=== PATIENT | male | born 1980 | race Caucasian/White ===

== ENCOUNTER → 2018-11-12 11:25 | Outpatient (CLI) | payer BC, SELFPAY ==
[2018-11-12 09:17] VITALS: BMI 32.8
--- NOTE | 2018-11-12 09:30 | VAS_PTH ---
PATIENT: FELISHA SOLIMAN LOC: [facility] U#:[id number] AGE/SX: 45/M ROOM: RE11/12/[address]: Dr. Mitul Castro MD : 1980 BED: DIS: SPEC #: [id number] RECD: 11/12/18 11:19 STATUS: SHASHANK MADIHA #: [id number] LUCI: 11/12/18 09:[address]: Mitul Castro DEPT: SURGICAL PATHOLOGY RECD BY: Tone Hall Tissues: A - Vas deferens, NOS B - Vas deferens, NOS Procedures: Surgery Specimen Level II HEADER OPERATION: Bilateral partial vasectomy PRE-OP DIAGNOSIS: Sterilization TISSUE SUBMITTED: A - Right vas deferens, B - Left vas deferens MICROSCOPIC DIAGNOSIS A. Right vas deferens, segmental vasectomy: Complete cross section of the vas deferens with no pathologic change. B. left vas deferens, segmental vasectomy: Complete cross section of the vas deferens with no pathologic change. AM:deidre 11/15/18 MICROSCOPIC DESCRIPTION Slides are reviewed. GROSS DESCRIPTION A - Received is one container designated right vas deferens. The specimen consists of a cylindrical segment of pink-ford soft tissue. The fragment measures 2 cm in length and 0.2 cm in maximum diameter. Serial sections do not reveal gross lesions. The specimen is serially sectioned and totally submitted in one cassette. B - Received is one container designated left vas deferens. The specimen consists of a cylindrical segment of pink-ford soft tissue. The fragment measures 1.5 cm in length and 0.2 cm in maximum diameter. Serial sections do not reveal gross lesions. The specimen is serially sectioned and totally submitted in one cassette. / AM:deidre 11/13/18 TC: 4 CPT: 84486 x2
--- OUTSIDE RECORDS SUMMARY | 2019-01-16 23:18 | XMS RPT_ITS ---
:1980 Author Organization OH[facility] Care Team Providers Name Role Phone Mitul Castro Attending Unavailable Cebul, Mitul Referring Unavailable Cebul, Mitul Attending Unavailable Cebul, Mitul Attending Unavailable Cebul, Mitul Referring Unavailable Cebul, Mitul Attending Unavailable PROBLEMS PROBLEMS DATE TYPE CONDITION / CODE ATTENDING STATUS SOURCE 11/12/2018 Unknown Z30.2 - Encounter Mitul Castro Active [employer] for sterilization / Community Z30.2(ICD-10) Hospital Repository PROCEDURES PROCEDURES No Procedure Records FoundRESULTS RESULTS SURGERY VISIT REPORT Observed: 11/12/2018 Status: F Source: [place] 10:05 AM [facility] REPOSITORY [facility] [address] [place] [address] [address] [place] [address] OFFICE VISIT Date of Service: 11/12/18 MR#: [id number] Acct: [id number] Name: FELISHA SOLIMAN Rep #: [id number] : 1980 Provider: Mitul Castro MD Age/Sex: 38/M Location: [facility] Status: Signed Intake Vital Signs11/12/18 Body Mass Index (BMI) 32.8 Intake Visit Reasons: vasectomy Chief Complaint: vasectomy Stacker Tender Required: No Is patient in pain?: No Allergies Penicillins Allergy (Mild, Verified 11/12/18 09:08) rash Medications acetaminophen 300 mg-codeine 30 mg tablet 1 tab PO Q6H PRN #10 tab 11/11/18 [Rx Confirmed 11/11/18] [facility] Medical History Encounter for sterilization (Acute) Surgical History History of vasectomy (Acute 10/2018) S/P cholecystectomy (Acute) Family History Mother Diabetes Father Diabetes Heart disease Social History Smoking Status: Never smoker alcohol intake: current alcohol intake frequency: 0-2 drinks per day substance use type: does not use HPI HPI HPI: FELISHA SOLIMAN, is a 38 M who presents to the office today for surgical bilateral partial vasectomy Office Procedures Procedure Time Out Time Out Informed consent given: Yes Consent signed: Yes Time out checklist: patient, procedure, site marked/identified, positioning of patient, supplies available, allergies confirmed, team agrees on procedure Time out staff in room: Yes Time out verified: Yes Time out date: 11/12/18 Time out time: Vasectomy Provider Documentation Provider Documentation: Bilateral partial vasectomy Time out and informed consent was obtained. The patient was taken to the procedure room and placed supine on the table. Bilateral scrotal areas were clipper and Betadine prepped. 1% lidocaine mixed 50-50 with 0.5% Marcaine was utilized as a local anesthetic. Less than a total of 10 cc was utilized. Bilateral scrotal incisions were created. Sharp and blunt dissection was used to identify the vas deferens. A segment was cleared, the ends were crushed, and segments were excised. The ends were secured with 3-0 chromic inverted and resecured. The skin edges were approximated with simple sutures of 3-0 chromic. Topical antibiotic ointment and gauze applied. He was given activity and wound care instructions. The specimens are submitted in formalin for analysis. He is scheduled to return to my office in 1 week's time. He has been provided analgesics as prescribed. He is well aware that he has not yet cleared from utilizing other means of control. He is aware that 2 negative consecutive semen counts will be required prior to releasing him from utilizing other means of control. He is aware that this is his responsibility to complete. He has had an opportunity to ask and have questions answered. Blood loss minimal. Specimens segments of vas deferens. Complications none. Mitul Castro M.D., F.A.C.S. Vasectomy 26177 Vasectomy Assessment AND Plan Problems 1. Encounter for sterilization Z30.2 Plan Successful bilateral partial vasectomy The patient was provided with a prescription of Tylenol with codeine. He is aware that he has an office appointment scheduled for 1 week for surgical follow- up. He is aware that he is not yet cleared from utilizing other means of control. He has had an opportunity to ask and have questions answered. Mitul Castro M.D., F.A.C.S. Orders Orders: Medications New: Coding Level of Care Code Attention Millicent Diagnoses Encounter for sterilization Z30.2 Additional Codes Vasectomy (80487) 11/12/18 1005 <Electronically signed by Mitul Castro MD> Date Mitul Castro MD Cosigner Signature: Date (if applicable) CC: VAS DEFERENS Observed: 11/12/2018 Status: F Source: [place] (STERILIZATION) 9:[address] [facility] REPOSITORY Patient: FELISHA SOLIMAN : 1980 (38/M) Acct Num: [id number] Phys: Gloria ELLSWORTH,Mitul Unit Num: [id number] Loc: [facility]SPEC Specimen: [id number] Received: 11/12/181118 Spec Type: VAS TISSUES 1 TISSUES: A. Vas deferens, NOS - RIGHT B. Vas deferens, NOS - LEFT GROSS DESCRIPTION A - Received is one container designated right vas deferens. The specimen consists of a cylindrical segment of pink-ford soft tissue. The fragment measures 2 cm in length and 0.2 cm in maximum diameter. Serial sections do not reveal gross lesions. The specimen is serially sectioned and totally submitted in one cassette. B - Received is one container designated left vas deferens. The specimen consists of a cylindrical segment of pink-ford soft tissue. The fragment measures 1.5 cm in length and 0.2 cm in maximum diameter. Serial sections do not reveal gross lesions. The specimen is serially sectioned and totally submitted in one cassette. / AM:sp 11/13/18 TC: 4 CPT: 11711 x2 HEADER OPERATION: Bilateral partial vasectomy PRE-OP DIAGNOSIS: Sterilization TISSUE SUBMITTED: A - Right vas deferens, B - Left vas deferens MICROSCOPIC DESCRIPTION Slides are reviewed. MICROSCOPIC DIAGNOSIS A. Right vas deferens, segmental vasectomy: Complete cross section of the vas deferens with no pathologic change. B. left vas deferens, segmental vasectomy: Complete cross section of the vas deferens with no pathologic change. AM:deidre 11/15/18 Signed Harpreet Gillespie DO 11/15/18 <signature on file> Performed By: #### PVAS #### [facility] [address] [facility] [place], [address] SURGERY VISIT REPORT Observed: 10/08/2018 Status: F Source: [place] 4:[address] [facility] REPOSITORY [facility] [address] [place] [address]. [address] [place] [address] OFFICE VISIT Date of Service: 10/08/18 MR#: [id number] Acct: [id number] Name: FELISHA SOLIMAN Rep #: [id number] : 1980 Provider: Mitul Castro MD Age/Sex: 38/M Location: [facility] Status: Signed Intake Vital Signs10/08/18 Body Mass Index (BMI) 32.8 10/08/18 Height 6 ft 4 in Intake Visit Reasons: Vasectomy Consult - Prev Consult in 2017 Chief Complaint: vasectomy Stacker Tender Required: No Accompanied by: None Is patient in pain?: No Allergies Penicillins Allergy (Mild, Verified 10/14/17 07:33) rash Medications lorazepam 2 mg tablet 2 mg PO QDAY #1 tab 10/08/18 [Rx Confirmed 10/08/18] [facility] Medical History Encounter for sterilization (Acute) Surgical History S/P cholecystectomy (Acute) Family History Mother Diabetes Father Diabetes Heart disease Social History Smoking Status: Never smoker alcohol intake: current alcohol intake frequency: 0-2 drinks per day substance use type: does not use HPI HPI HPI: FELISHA SOLIMAN, is a 38 M who presents to the office today for repeat consultation regarding bilateral partial vasectomy as a means of sterilization. I saw this patient October 14, 2017. Subsequent to that he and his elected not to proceed with his sterilization. He returns now for repeat discussion. He denies chronic health issues and has had no health issues since our previous interchange. Exam Other: Testicles are descended. No mass. Vas deferens are easily palpable. Fibrofatty groin area noted but no distinct hernias bilaterally Assessment AND Plan Problems 1. Encounter for sterilization Z30.2 Plan I have discussed with the patient the technique, benefits, risks and alternatives of bilateral partial vasectomy as a means of sterilization. No guarantees of success have been offered. The patient is aware that semen analysis will be required post procedure. He is aware that I consider this to be a permanent procedure. He is aware that 2- consecutive semen analysis counts will be required prior to releasing him from utilizing other means of control. He has been provided a small prescription of lorazepam. He is well aware that he is not permitted to drive after taking that medication. He will schedule and proceed at his own discretion Mitul Castro M.D., F.A.C.S. Medications Refilled: lorazepam (Ativan) Take 1 tablet by mouth 45 minutes prior to y2 mg PO QDAY 1 tab 0RF our procedure. Coding Level of Care Code Off vis,est,level 2 Diagnoses Encounter for sterilization Z30.2 10/08/18 6073 <Electronically signed by Mitul Castro MD> Date Mitul Castro MD Cosigner Signature: Date (if applicable) CC: PROGRESS Observed: 09/27/2018 Status: COMPLETED Source: [place] 10:34 AM [facility] REPOSITORY HNO ID: [id number] Author: Rekha Sylvester Service: (none) Author Type: Nurse Practitioner Type: Progress Notes Filed: 09/27/2018 10:49 AM Note Text: Subjective HPI Pt presents with 3 day x/o sore throat, tactile fever, runny nose and cough. Cough is intermittent, moist, nonproductive. Has not taken any OTC medications. Denies chills, dyspnea, wheezing. Son was dx with strep throat last week. Review of Systems Constitutional: Positive for fever. Negative for chills and malaise/fatigue. HENT: Positive for congestion and sore throat. Negative for ear pain. Respiratory: Positive for cough. Negative for hemoptysis, sputum production, shortness of breath and wheezing. Musculoskeletal: Positive for myalgias. Skin: Negative for rash. Objective Physical Exam Constitutional: He is oriented to person, place, and time and well-developed, well-nourished, and in no distress. No distress. HENT: Head: Normocephalic. Right Ear: Hearing, tympanic membrane, external ear and ear canal normal. Left Ear: Hearing, tympanic membrane, external ear and ear canal normal. Nose: Nose normal. Right sinus exhibits no maxillary sinus tenderness and no frontal sinus tenderness. Left sinus exhibits no maxillary sinus tenderness and no frontal sinus tenderness. Mouth/Throat: Uvula is midline, oropharynx is clear and moist and mucous membranes are normal. No oropharyngeal exudate, posterior oropharyngeal edema, posterior oropharyngeal erythema or tonsillar abscesses. Eyes: Pupils are equal, round, and reactive to light. Conjunctivae are normal. Right eye exhibits no discharge. Left eye exhibits no discharge. Neck: Neck supple. Cardiovascular: Normal rate, regular rhythm and normal heart sounds. Exam reveals no gallop and no friction rub. No murmur heard. Pulmonary/Chest: Effort normal and breath sounds normal. No accessory muscle usage. No tachypnea. No respiratory distress. He has no decreased breath sounds (CTA, good air movement throughout, no cough noted during exam.). He has no wheezes. He has no rhonchi. He has no rales. Lymphadenopathy: He has no cervical adenopathy. Neurological: He is alert and oriented to person, place, and time. Skin: Skin is warm. He is not diaphoretic. BP 120/78 Pulse 92 Temp 37.5 ?C (99.5 ?F) (Tympanic) Resp 16 Wt 125.6 kg (276 lb 12.8 oz) SpO2 96% BMI 34.14 kg/m? .Patient presents with: ST, fever, congestion and bodyaches: x 3 days PAST MEDICAL HISTORY Diagnosis Date - Psoriasis no current medications PAST SURGICAL HISTORY Procedure Laterality Date - CHOLECYSTECTOMY 1999 laparoscopic - EXTRACTION ERUPTED TOOTH/EXR ALLERGIES Penicillins MEDICATIONS guaiFENesin (MUCINEX) 600 mg 12 hr tablet Take 2 tablets by mouth twice daily. benzonatate (TESSALON PERLE) 100 mg capsule Take 1 capsule by mouth three times daily as needed. codeine-guaiFENesin (ROBITUSSIN AC) 10-100 mg/5 mL syrup Take 5-10 mL by mouth four times daily as needed for up to 5 days. May cause drowsiness. lidocaine viscous (LIDOCAINE VISCOUS) 2 % solution Gargle and spit 10-15mLs every 3-4 hours as need for throat discomfort. fluconazole (DIFLUCAN) 100 mg tablet Take one tab twice a day for 10 days mupirocin (BACTROBAN) 2 % ointment Apply 1 application to affected area twice daily as needed. (antibiotic ointment) calcipotriene (DOVONEX) 0.005 % cream Apply 1 application to affected area twice daily as needed. predniSONE (DELTASONE) 5 mg tablet Take ten tabs by mouth on day one and reduce by one a day till done. albuterol HFA (PROAIR HFA) 90 mcg/actuation inhaler Inhale 2 Puffs as instructed every 4 hours as needed for Wheezing/Shortness of Breath. FAMILY HISTORY Problem Relation Age of Onset - Psoriasis Maternal Grandmother - Psoriasis Mother - other (diabetes mellitus type 2) Mother - other (diabetes mellitus type 2) Father Social History Substance Use Topics - Smoking status: Never Smoker - Smokeless tobacco: Never Used - Alcohol use Yes Comment: ocas ASSESSMENT/PLAN: 1. Viral URI with cough - ICD9: 465.9, ICD10: J06.9, B97.89 (primary diagnosis) - Discussed viral etiology and rationale for treatment. - Symptomatic treatment with prn analgesia - Supportive care with fluids and rest - Follow up in 3-5 days if symptoms persist or sooner if worsening of symptoms - GUAIFENESIN ER 600 MG TABLET, EXTENDED RELEASE 12 HR - BENZONATATE 100 MG CAPSULE - CODEINE 10 MG-GUAIFENESIN 100 MG/5 ML ORAL LIQUID 2. Sore throat - ICD9: 462, ICD10: J02.9 - Rapid Strep negative in the office today and Throat culture pending - Discussed supportive care treatment with fluids, rest and analgesia. - The patient should follow up in 3-5 days if symptoms persist or worsen - Call back if drooling, increased temperature, symptoms of dehydration and/or still sick in one week - RAPID STREP TEST B/O - GROUP A STREPTOCOCCUS BY PCR - LIDOCAINE 2 % MUCOSAL SOLUTION The patient is instructed to return or seek emergency treatment if symptoms become worse or with any acute change in condition. The patient verbalizes understanding and is in agreement with plan of care. Rekha Sylvester CNP GROUP A STREP BY Collected: 09/27/2018 Status: F Source: [place] PCR 9:45 AM [facility] REPOSITORY TYPE CODE TESTS RESULT OUT OF REFERENCE UNITS [facility] Throat Swab GAS Specimen Source LAB PCRGAS Negative for Group A Strep Group A PCR Streptococcus by PCR. Result Comment: This test was developed and its performance characteristics determined by [facility]'s Mitul Madrigal [facility] [place] ([facility]). It has not been cleared or approved by the FDA. [facility] is regulated under CLIA as qualified to perform high-complexity testing. This test is used for clinical purposes. It should not be regarded as inv estigational or for research. Performed By: #### GASPCR #### [facility] [address] [place], [place] [address] CNOV Observed: 09/27/2018 Status: COMPLETED Source: [place] 9:00 [facility] REPOSITORY Office Visit (WSTR) FELISHA SOLIMAN ([id number]) 1980 M Date Time Provider Department 09/27/18 9:00 AM [facility] During your visit today, we recorded the following information about you: Temperature Pulse Respiration Blood pressure 99.5 degrees 92/minute 16/minute 120/78 Weight 125.6 kg Rekha Sylvester APRN.HYPERION ADMINISTRATOR 09/27/2018 9:24 AM Signed [facility] PATIENT INFO COMMON COLD OVERVIEW The common cold is one of the most frequent illnesses in the [place]. Although most colds are mild and resolve within a short time period, colds cost billions of dollars per year, mostly due to lost time at work and school. COMMON COLD CAUSES The common cold is a group of symptoms caused by one of a large number of viruses. Rhinoviruses cause the greatest number of colds; there are more than 100 different varieties of rhinovirus. Most viruses cause a person to be ill only once. However, due to the large number of viruses, a person can have a cold multiple times throughout his or her lifetime. The average adult experiences two to three colds per year, while children average 8 to 12 colds per year. Colds are transmitted from gcvrrr-fv-wgxdfg. Less often, the virus can be transmitted by touching a surface. Direct contact ? People with colds typically carry the cold virus on their hands. The virus may remain alive on the skin and capable of infecting another person for at least two hours. Thus, if a sick person shakes someone's hand and that individual then touches his eye, nose, or mouth, the virus can be transmitted and later infect that person. Infection from particles on surfaces ? Some cold viruses can live on surfaces (such as a counter top, door handle, or phone) for several hours. Inhaling viral particles ? Droplets containing viral particles can be breathed, coughed, or sneezed into the air by a person with a cold. The virus can be transmitted to others if another person is standing close (a few feet) and the droplet touches that person?s eye, nose, or mouth. Covering the mouth while coughing or sneezing greatly reduces this risk. Most cold viruses are not spread by saliva. Thus, kissing itself is not likely to transmit the common cold, but close direct contact can. Colds are not caused by cold climates or being exposed to cold air. However, some types of virus cause more colds during certain seasons (eg, fall and winter versus spring). COMMON COLD SIGNS AND SYMPTOMS The common cold usually causes nasal congestion, runny nose, and sneezing. A sore throat may be present on the first day but usually resolves quickly. If a cough occurs, it generally develops on about the fourth or fifth day of symptoms, typically when congestion and runny nose are usually resolving. COMMON COLD COMPLICATIONS In most cases, colds do not cause serious illness. Most colds last for three to seven days, although many people continue to have symptoms (coughing, sneezing, congestion) for up to two weeks. Some viruses that cause the common cold can also depress the immune system or cause swelling in the lining of the nose or airways; this can, in turn, lead to a new viral infection or bacterial infection. ? One of the more common complications is sinusitis, which is usually caused by viruses and rarely (about 2 percent of the time) by bacteria. However, it can be difficult to distinguish bacterial sinusitis from sinusitis caused by a cold because the signs and symptoms can be similar Having thick or yellow to green-colored nasal discharge does not mean that bacterial sinusitis has developed; discolored nasal discharge is a normal phase of the common cold. ? Lower respiratory infections, such as pneumonia or bronchitis, may develop following a cold. ? Infection of the middle ear, or otitis media, can accompany or follow a cold. ? The influenza virus, which causes the flu, can also cause features similar to those of a cold. However, the flu usually causes other signs and symptoms (fever, body aches) and is more serious than a cold. COMMON COLD TREATMENT There is no specific treatment for the viruses that cause the common cold. Most treatments are aimed at relieving some of the symptoms of the cold, but do not shorten or cure the cold. Antibiotics are not useful for treating the common cold; antibiotics are only used to treat illnesses caused by bacteria, not viruses. The symptoms of a cold will resolve over time, even without any treatment. The following are treatments that may reduce the symptoms caused by the common cold. People with underlying medical conditions and those who use other jeab-mgy-agizhhu or prescription medications should speak with their healthcare provider or pharmacist to ensure that it is safe to use these treatments. Runny nose and nasal congestion ? Runny nose and congestion may improve with the use of decongestants. Pseudoephedrine is a decongestant that can improve nasal congestion. Most drugstores in the [place] carry pseudoephedrine behind the counter, so it must be requested from the pharmacist (a prescription is not required). Antihistamines such as diphenhydramine (Benadryl?) may also help, but can cause side effects such as drowsiness and drying of the eyes, nose, and mouth. Nasal inhalers, including ipratropium bromide (Atrovent?, available by prescription) may relieve runny nose and sneezing while cromolyn sodium (NasalCrom?, a non-prescription medicine) may relieve runny nose, cough, and sneezing. Other nasal sprays such an oxymetazoline (Afrin? and others) can also give temporary relief of nasal congestion. However, these sprays should never be used for more than two to three days; use for more than three days use can worsen congestion. Nasal irrigation and saline sprays ? Rinsing the nose with a salt-water (saline) solution is called nasal irrigation or nasal lavage. Saline is also available in a standard nasal spray, although this is not as effective as using larger amounts of water in an irrigation. Nasal irrigation is particularly useful for treating drainage down the back of the throat, sneezing, nasal dryness, and congestion. The treatment helps by rinsing out allergens and irritants from the nose. Saline rinses also clean the nasal lining and can be used before applying sprays containing medications, to get a better effect from the medication. Nasal lavage with warmed saline can be performed as needed, once per day, or twice daily for increased symptoms. Nasal lavage carries few risks when performed correctly. Saline nasal sprays and irrigation kits can be purchased [id number]-[id number]. Saline mixes can also be purchased or patients can make their own solution. A variety of devices, including bulb syringes, Neti pots, and bottle sprayers, may be used to perform nasal lavage; instructions for nasal lavage are provided in the table. At least 200 mL (about 3/4 cup) of fluid is recommended for each nostril. Sore throat and headache ? Sore throat and headache are best treated with a mild pain reliever such as acetaminophen (Tylenol?) or a non-steroidal anti-inflammatory agent such as ibuprofen or naproxen (Motrin? or Aleve?). Cough ? Common cough medicine ingredients include guaifenesin and dextromethorphan; these are often combined with other medications in faxr-iaq-yapjdad cold formulas. However, the benefit of cough medicines is likely to be small to non-existent. In clinical trials, cough suppressants were no more effective in reducing the duration or severity of coughing due to cold than a placebo (a non-drug substitute). Antibiotics ? Antibiotics should not be used to treat an uncomplicated common cold. As noted above, colds are caused by viruses. Antibiotics treat bacterial, not viral infections. Alternative treatments ? Heated, humidified air can improve symptoms of nasal congestion and runny nose, and causes few to no side effects. PREVENTION Hand washing is an essential and highly effective way to prevent the spread of infection. Hands should be wet with water and plain soap, and rubbed together for 15 to 30 seconds. Special attention should be paid to the fingernails, between the fingers, and the wrists. Hands should be rinsed thoroughly, and dried with a single use towel. Alcohol-based hand rubs are a good alternative for disinfecting hands if a sink is not available. Hand rubs should be spread over the entire surface of hands, fingers, and wrists until dry, and may be used several times. These rubs can be used repeatedly without skin irritation or loss of effectiveness. Hand rubs are available as a liquid or wipe in small, portable sizes that are easy to carry in a pocket or handbag. When a sink is available, visibly soiled hands should be washed with soap and water. Hands should be washed before preparing food and eating, and after coughing, blowing the nose, or sneezing. While it is not always possible to limit contact with people who may be infected with a cold, touching the eyes, nose, or mouth after direct contact should be avoided when possible. In addition, tissues should be used to cover the mouth when sneezing or coughing. These used tissues should be disposed of promptly. Sneezing/coughing into the sleeve of one's clothing (at the inner elbow) is another means of containing sprays of saliva and secretions and does not contaminate the hands. SUMMARY ? The average adult experiences two to three colds per year, while children average 8 to 12 colds per year. ? Symptoms of the common cold usually include nasal congestion, runny nose, and sneezing. They typically last for three to seven days, although many people have symptoms (coughing, sneezing, congestion) for up to two weeks. ? People with colds typically carry the cold virus on their hands, where it can infect another person for at least two hours. Some cold viruses can live on surfaces (such as a counter top, door handle, or phone) for several hours. Droplets containing viral particles can be breathed, coughed, or sneezed into the air. ? There is no specific treatment for colds. Treatment may reduce some of the symptoms of the cold, but do not shorten or cure the cold. Antibiotics are not useful for treating the common cold. Hand washing can prevent the spread of infection. Hands should be wet with water and plain soap, and rubbed together for 15 to 30 seconds. Alcohol-based hand rubs are a good alternative for disinfecting hands if a sink is not available Rekha Sylvester APRN.TAMAR 09/27/2018 10:49 AM Signed Subjective HPI Pt presents with 3 day x/o sore throat, tactile fever, runny nose and cough. Cough is intermittent, moist, nonproductive. Has not taken any OTC medications. Denies chills, dyspnea, wheezing. Son was dx with strep throat last week. Review of Systems Constitutional: Positive for fever. Negative for chills and malaise/fatigue. HENT: Positive for congestion and sore throat. Negative for ear pain. Respiratory: Positive for cough. Negative for hemoptysis, sputum production, shortness of breath and wheezing. Musculoskeletal: Positive for myalgias. Skin: Negative for rash. Objective Physical Exam Constitutional: He is oriented to person, place, and time and well-developed, well-nourished, and in no distress. No distress. HENT: Head: Normocephalic. Right Ear: Hearing, tympanic membrane, external ear and ear canal normal. Left Ear: Hearing, tympanic membrane, external ear and ear canal normal. Nose: Nose normal. Right sinus exhibits no maxillary sinus tenderness and no frontal sinus tenderness. Left sinus exhibits no maxillary sinus tenderness and no frontal sinus tenderness. Mouth/Throat: Uvula is midline, oropharynx is clear and moist and mucous membranes are normal. No oropharyngeal exudate, posterior oropharyngeal edema, posterior oropharyngeal erythema or tonsillar abscesses. Eyes: Pupils are equal, round, and reactive to light. Conjunctivae are normal. Right eye exhibits no discharge. Left eye exhibits no discharge. Neck: Neck supple. Cardiovascular: Normal rate, regular rhythm and normal heart sounds. Exam reveals no gallop and no friction rub. No murmur heard. Pulmonary/Chest: Effort normal and breath sounds normal. No accessory muscle usage. No tachypnea. No respiratory distress. He has no decreased breath sounds (CTA, good air movement throughout, no cough noted during exam.). He has no wheezes. He has no rhonchi. He has no rales. Lymphadenopathy: He has no cervical adenopathy. Neurological: He is alert and oriented to person, place, and time. Skin: Skin is warm. He is not diaphoretic. BP 120/78 Pulse 92 Temp 37.5 ?C (99.5 ?F) (Tympanic) Resp 16 Wt 125.6 kg (276 lb 12.8 oz) SpO2 96% BMI 34.14 kg/m? .Patient presents with: ST, fever, congestion and bodyaches: x 3 days PAST MEDICAL HISTORY Diagnosis Date - Psoriasis no current medications PAST SURGICAL HISTORY Procedure Laterality Date - CHOLECYSTECTOMY 1999 laparoscopic - EXTRACTION ERUPTED TOOTH/EXR ALLERGIES Penicillins MEDICATIONS guaiFENesin (MUCINEX) 600 mg 12 hr tablet Take 2 tablets by mouth twice daily. benzonatate (TESSALON PERLE) 100 mg capsule Take 1 capsule by mouth three times daily as needed. codeine-guaiFENesin (ROBITUSSIN AC) 10-100 mg/5 mL syrup Take 5-10 mL by mouth four times daily as needed for up to 5 days. May cause drowsiness. lidocaine viscous (LIDOCAINE VISCOUS) 2 % solution Gargle and spit 10-15mLs every 3-4 hours as need for throat discomfort. fluconazole (DIFLUCAN) 100 mg tablet Take one tab twice a day for 10 days mupirocin (BACTROBAN) 2 % ointment Apply 1 application to affected area twice daily as needed. (antibiotic ointment) calcipotriene (DOVONEX) 0.005 % cream Apply 1 application to affected area twice daily as needed. predniSONE (DELTASONE) 5 mg tablet Take ten tabs by mouth on day one and reduce by one a day till done. albuterol HFA (PROAIR HFA) 90 mcg/actuation inhaler Inhale 2 Puffs as instructed every 4 hours as needed for Wheezing/Shortness of Breath. FAMILY HISTORY Problem Relation Age of Onset - Psoriasis Maternal Grandmother - Psoriasis Mother - other (diabetes mellitus type 2) Mother - other (diabetes mellitus type 2) Father Social History Substance Use Topics - Smoking status: Never Smoker - Smokeless tobacco: Never Used - Alcohol use Yes Comment: ocas ASSESSMENT/PLAN: 1. Viral URI with cough - ICD9: 465.9, ICD10: J06.9, B97.89 (primary diagnosis) - Discussed viral etiology and rationale for treatment. - Symptomatic treatment with prn analgesia - Supportive care with fluids and rest - Follow up in 3-5 days if symptoms persist or sooner if worsening of symptoms - GUAIFENESIN ER 600 MG TABLET, EXTENDED RELEASE 12 HR - BENZONATATE 100 MG CAPSULE - CODEINE 10 MG-GUAIFENESIN 100 MG/5 ML ORAL LIQUID 2. Sore throat - ICD9: 462, ICD10: J02.9 - Rapid Strep negative in the office today and Throat culture pending - Discussed supportive care treatment with fluids, rest and analgesia. - The patient should follow up in 3-5 days if symptoms persist or worsen - Call back if drooling, increased temperature, symptoms of dehydration and/or still sick in one week - RAPID STREP TEST B/O - GROUP A STREPTOCOCCUS BY PCR - LIDOCAINE 2 % MUCOSAL SOLUTION The patient is instructed to return or seek emergency treatment if symptoms become worse or with any acute change in condition. The patient verbalizes understanding and is in agreement with plan of care. Rekha Sylvester CNP Referring Provider: SELF [[id number]] Allergies As of Date: 09/27/2018 Noted Allergy Reaction PENICILLINS 03/02/2013 16 - Unknown Date Reviewed: 09/27/2018 Reviewed by: Thuy Rojas LPN - Fully Assessed Reason for Visit: ST, fever, congestion and bodyaches [Other] Cmt: x 3 days Primary Visit Diagnosis:Viral URI with cough [J06.9, B97.89] Other Visit Diagnosis:Sore throat [J02.9] Order(s):RAPID STREP TEST B/O [1887433] Order #: [id number] GROUP A STREPTOCOCCUS BY PCR [SQGASPCR] Order #: [id number] guaiFENesin (MUCINEX) 600 mg 12 hr tabletTake 2 tablets by mouth twice daily.Disp: 30 tabletRfl: 0 benzonatate (TESSALON PERLE) 100 mg capsuleTake 1 capsule by mouth three times daily as needed.Disp: 60 capsuleRfl: 0 codeine-guaiFENesin (ROBITUSSIN AC) 10-100 mg/5 mL syrupTake 5-10 mL by mouth four times daily as needed for up to 5 days. May cause drowsiness.Disp: 120 mLRfl: 0 lidocaine viscous (LIDOCAINE VISCOUS) 2 % solutionGargle and spit 10-15mLs every 3-4 hours as need for throat discomfort.Disp: 120 mLRfl: 0 Prescriptions as of 09/27/2018 Sig: GUAIFENESIN ER 600 MG TABLET,* Take 2 tablets by mouth twice* BENZONATATE 100 MG CAPSULE Take 1 capsule by mouth three* CODEINE 10 MG-GUAIFENESIN 100* Take 5-10 mL by mouth four ti* LIDOCAINE 2 % MUCOSAL SOLUTION Gargle and spit 10-15mLs ever* FLUCONAZOLE 100 MG TABLET Take one tab twice a day for * Patient not taking: Reported on 09/27/2018 MUPIROCIN 2 % TOPICAL OINTMENT Apply 1 application to affect* Patient not taking: Reported on 09/27/2018 CALCIPOTRIENE 0.005 % TOPICAL* Apply 1 application to affect* Patient not taking: Reported on 09/27/2018 PREDNISONE 5 MG TABLET Take ten tabs by mouth on day* Patient not taking: Reported on 09/27/2018 ALBUTEROL SULFATE HFA 90 MCG/* Inhale 2 Puffs as instructed * Patient not taking: Reported on 09/27/2018 Problem List As Of Date 09/27/2018 Noted Resolved Psoriasis [L40.9] INVALID FOR* Periorbital swelling [H57.89] INVALID FOR* Plantar fascial fibromatosis [M72.2] INVALID FOR* 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 Other instructions from your clinician: EXPRESS CARE PATIENT INFO COMMON COLD OVERVIEW The common cold is one of the most frequent illnesses in the [place]. Although most colds are mild and resolve within a short time period, colds cost billions of dollars per year, mostly due to lost time at work and school. COMMON COLD CAUSES The common cold is a group of symptoms caused by one of a large number of viruses. Rhinoviruses cause the greatest number of colds; there are more than 100 different varieties of rhinovirus. Most viruses cause a person to be ill only once. However, due to the large number of viruses, a person can have a cold multiple times throughout his or her lifetime. The average adult experiences two to three colds per year, while children average 8 to 12 colds per year. Colds are transmitted from zbkyef-nx-[id number]. Less often, the virus can be transmitted by touching a surface. Direct contact ? People with colds typically carry the cold virus on their hands. The virus may remain alive on the skin and capable of infecting another person for at least two hours. Thus, if a sick person shakes someone's hand and that individual then touches his eye, nose, or mouth, the virus can be transmitted and later infect that person. Infection from particles on surfaces ? Some cold viruses can live on surfaces (such as a counter top, door handle, or phone) for several hours. Inhaling viral particles ? Droplets containing viral particles can be breathed, coughed, or sneezed into the air by a person with a cold. The virus can be transmitted to others if another person is standing close (a few feet) and the droplet touches that person?s eye, nose, or mouth. Covering the mouth while coughing or sneezing greatly reduces this risk. Most cold viruses are not spread by saliva. Thus, kissing itself is not likely to transmit the common cold, but close direct contact can. Colds are not caused by cold climates or being exposed to cold air. However, some types of virus cause more colds during certain seasons (eg, fall and winter versus spring). COMMON COLD SIGNS AND SYMPTOMS The common cold usually causes nasal congestion, runny nose, and sneezing. A sore throat may be present on the first day but usually resolves quickly. If a cough occurs, it generally develops on about the fourth or fifth day of symptoms, typically when congestion and runny nose are usually resolving. COMMON COLD COMPLICATIONS In most cases, colds do not cause serious illness. Most colds last for three to seven days, although many people continue to have symptoms (coughing, sneezing, congestion) for up to two weeks. Some viruses that cause the common cold can also depress the immune system or cause swelling in the lining of the nose or airways; this can, in turn, lead to a new viral infection or bacterial infection. ? One of the more common complications is sinusitis, which is usually caused by viruses and rarely (about 2 percent of the time) by bacteria. However, it can be difficult to distinguish bacterial sinusitis from sinusitis caused by a cold because the signs and symptoms can be similar Having thick or yellow to green-colored nasal discharge does not mean that bacterial sinusitis has developed; discolored nasal discharge is a normal phase of the common cold. ? Lower respiratory infections, such as pneumonia or bronchitis, may develop following a cold. ? Infection of the middle ear, or otitis media, can accompany or follow a cold. ? The influenza virus, which causes the flu, can also cause features similar to those of a cold. However, the flu usually causes other signs and symptoms (fever, body aches) and is more serious than a cold. COMMON COLD TREATMENT There is no specific treatment for the viruses that cause the common cold. Most treatments are aimed at relieving some of the symptoms of the cold, but do not shorten or cure the cold. Antibiotics are not useful for treating the common cold; antibiotics are only used to treat illnesses caused by bacteria, not viruses. The symptoms of a cold will resolve over time, even without any treatment. The following are treatments that may reduce the symptoms caused by the common cold. People with underlying medical conditions and those who use other jygg-zbu-quscnpr or prescription medications should speak with their healthcare provider or pharmacist to ensure that it is safe to use these treatments. Runny nose and nasal congestion ? Runny nose and congestion may improve with the use of decongestants. Pseudoephedrine is a decongestant that can improve nasal congestion. Most drugstores in the [place] carry pseudoephedrine behind the counter, so it must be requested from the pharmacist (a prescription is not required). Antihistamines such as diphenhydramine (Benadryl?) may also help, but can cause side effects such as drowsiness and drying of the eyes, nose, and mouth. Nasal inhalers, including ipratropium bromide (Atrovent?, available by prescription) may relieve runny nose and sneezing while cromolyn sodium (NasalCrom?, a non-prescription medicine) may relieve runny nose, cough, and sneezing. Other nasal sprays such an oxymetazoline (Afrin? and others) can also give temporary relief of nasal congestion. However, these sprays should never be used for more than two to three days; use for more than three days use can worsen congestion. Nasal irrigation and saline sprays ? Rinsing the nose with a salt-water (saline) solution is called nasal irrigation or nasal lavage. Saline is also available in a standard nasal spray, although this is not as effective as using larger amounts of water in an irrigation. Nasal irrigation is particularly useful for treating drainage down the back of the throat, sneezing, nasal dryness, and congestion. The treatment helps by rinsing out allergens and irritants from the nose. Saline rinses also clean the nasal lining and can be used before applying sprays containing medications, to get a better effect from the medication. Nasal lavage with warmed saline can be performed as needed, once per day, or twice daily for increased symptoms. Nasal lavage carries few risks when performed correctly. Saline nasal sprays and irrigation kits can be purchased hipj-nrh-xbbgwtw. Saline mixes can also be purchased or patients can make their own solution. A variety of devices, including bulb syringes, Neti pots, and bottle sprayers, may be used to perform nasal lavage; instructions for nasal lavage are provided in the table. At least 200 mL (about 3/4 cup) of fluid is recommended for each nostril. Sore throat and headache ? Sore throat and headache are best treated with a mild pain reliever such as acetaminophen (Tylenol?) or a non-steroidal anti-inflammatory agent such as ibuprofen or naproxen (Motrin? or Aleve?). Cough ? Common cough medicine ingredients include guaifenesin and dextromethorphan; these are often combined with other medications in aovi-rqz-aivqojr cold formulas. However, the benefit of cough medicines is likely to be small to non-existent. In clinical trials, cough suppressants were no more effective in reducing the duration or severity of coughing due to cold than a placebo (a non-drug substitute). Antibiotics ? Antibiotics should not be used to treat an uncomplicated common cold. As noted above, colds are caused by viruses. Antibiotics treat bacterial, not viral infections. Alternative treatments ? Heated, humidified air can improve symptoms of nasal congestion and runny nose, and causes few to no side effects. PREVENTION Hand washing is an essential and highly effective way to prevent the spread of infection. Hands should be wet with water and plain soap, and rubbed together for 15 to 30 seconds. Special attention should be paid to the fingernails, between the fingers, and the wrists. Hands should be rinsed thoroughly, and dried with a single use towel. Alcohol-based hand rubs are a good alternative for disinfecting hands if a sink is not available. Hand rubs should be spread over the entire surface of hands, fingers, and wrists until dry, and may be used several times. These rubs can be used repeatedly without skin irritation or loss of effectiveness. Hand rubs are available as a liquid or wipe in small, portable sizes that are easy to carry in a pocket or handbag. When a sink is available, visibly soiled hands should be washed with soap and water. Hands should be washed before preparing food and eating, and after coughing, blowing the nose, or sneezing. While it is not always possible to limit contact with people who may be infected with a cold, touching the eyes, nose, or mouth after direct contact should be avoided when possible. In addition, tissues should be used to cover the mouth when sneezing or coughing. These used tissues should be disposed of promptly. Sneezing/coughing into the sleeve of one's clothing (at the inner elbow) is another means of containing sprays of saliva and secretions and does not contaminate the hands. SUMMARY ? The average adult experiences two to three colds per year, while children average 8 to 12 colds per year. ? Symptoms of the common cold usually include nasal congestion, runny nose, and sneezing. They typically last for three to seven days, although many people have symptoms (coughing, sneezing, congestion) for up to two weeks. ? People with colds typically carry the cold virus on their hands, where it can infect another person for at least two hours. Some cold viruses can live on surfaces (such as a counter top, door handle, or phone) for several hours. Droplets containing viral particles can be breathed, coughed, or sneezed into the air. ? There is no specific treatment for colds. Treatment may reduce some of the symptoms of the cold, but do not shorten or cure the cold. Antibiotics are not useful for treating the common cold. Hand washing can prevent the spread of infection. Hands should be wet with water and plain soap, and rubbed together for 15 to 30 seconds. Alcohol-based hand rubs are a good alternative for disinfecting hands if a sink is not available Prescriptions ordered this encounter Disp Refills Start End GUAIFENESIN ER 600 MG TABLET, EXTEND* 30 t* 0 09/27/2018 Route: ORAL Sig: Take 2 tablets by mouth twice daily. BENZONATATE 100 MG CAPSULE 60 c* 0 09/27/2018 Route: ORAL Sig: Take 1 capsule by mouth three times daily as needed. CODEINE 10 MG-GUAIFENESIN 100 MG/5 M* 120 * 0 09/27/2018 10/02/2018 Class: Print RX Route: ORAL Sig: Take 5-10 mL by mouth four times daily as needed for up to 5 days. May cause drowsiness. LIDOCAINE 2 % MUCOSAL SOLUTION 120 * 0 09/27/2018 Sig: Gargle and spit 10-15mLs every 3-4 hours as need for throat discomfort. Encounter Status:Closed by REKHA SYLVESTER CNP on 09/27/18 ALLERGIES ALLERGIES DATE TYPE / CODE NAME / CODE REACTION SEVERITY SOURCE 11/12/2018 Drug Penicillins/[id number] Rash [place] Brittany Allergy/416 0476(RXNORM) [facility] [id number]([facility] ED CT) Repository 03/02/2013 Drug PENICILLINS UNKNOWN [facility] Class/[address] [place] 100[address](SNOMED Repository CT) ENCOUNTERS ENCOUNTERS ADMIT/DISCHARGE ACCOUNT ADMITTING ENCOUNTER LOCATION SOURCE NUMBER CLASS 11/12/2018 [id number] Ambulatory [facility] ing:LABSPEC Repository 11/12/2018/11/12/19 [id number] Ambulatory BMSBuilding:B [employer] [facility] MS.[facility] Repository 10/08/2018/10/08/20 [id number] Ambulatory BMSBuilding:B [place] 18 MS.[facility] Repository 09/27/2018/12/04 [id number] Ambulatory [address] Repository 11/27/2017 [id number] Ambulatory BMSBuilding:B [place] MS.[facility] Repository PAYERS PAYERS ENCOUNTER GUARANTOR PAYER SUBSCRIBER SOURCE 11/12/2018 FELISHA Soto [id number] Insurance:ANTHEMPolic STEENSENDOB: [facility], y Number: [id number] [address]Nnp: [id number] Repository Date:[id number] () [address], [place] [address]US: 11/12/2018 Secondary NOT GIVENUNK Brittany Insurance:SELF PAY [facility] Number: Effective Repository Date:2018-11-12 11/12/2018 FELISHA Delgado Primary FELISHA Soto [id number] Insurance:ANTHEMPolic STEENSENDOB: [facility], y Number: [id number] [address]Adk: [id number] Repository Date:[id number] () [address], [place] [address]XG: 11/12/2018 Secondary NOT GIVENUNK Brittany Insurance:SELF PAY [facility] Number: Effective Repository Date:2018-11-10 10/08/2018 FELISHA Delgado Primary FELISHA Soto [id number] Insurance:ANTHEMPolic STEENSENDOB: [facility], y Number: [id number] [address]Yni: [id number] Repository Date:[id number] () [id number] [address]CF: 10/08/2018 Secondary NOT GIVENUNK Brittany Insurance:SELF PAY [facility] Number: Effective Repository Date:2018-09-30 11/27/2017 Felisha Delgado Primary Felisha Soto [id number] Insurance:ANTHEMPolic SteensenDOB: [facility], y Number: [id number] [facility] [address]Omz: [id number] Repository Date:[id number] [address] ([address]) [address], [place] [address]FR: 11/27/2017 Secondary NOT GIVENUNK [employer] Insurance:SELF PAY [facility]: Effective Repository Date:2017-11-12
== END ==
PROVIDERS: Referring Provider Surgery; Visit Provider Surgery
DX: Z30.2 Encounter for sterilization (principal)
CPT/HCPCS: 88302

== ENCOUNTER → 2019-04-29 | Outpatient (CLI) | payer BC, SELFPAY ==
[2018-11-26 14:23] VITALS: BMI 32.8
[2019-05-03 09:53] LABS: Semen Analysis Post Vas ABSENT
== END | disposition home or self-care (01) ==
LOC: LABSPEC 15:13
PROVIDERS: Referring Provider Surgery; Visit Provider Surgery
DX: Z30.2 Encounter for sterilization (principal)
CPT/HCPCS: 89321

== ENCOUNTER 2021-04-14 18:05 | Emergency (ER) | payer BC, SELFPAY ==
[2018-11-26 14:23] VITALS: BMI 32.8
[2021-04-14 18:07] VITALS: BP 166/84; PULSE 84; RESP 18; TEMP 36.3; O2SAT 97; BMI 34.1
--- NOTE | 2021-04-14 18:46 | EDS_ITS ---
HPI History of Present Illness Chief Complaint: Back Detail of Chief Complaint: Upper back pain began yesterday. Informant: patient and spouse/S.O. Onset/Context/Timing Onset: Yesterday Timing: Continuous Quality: Sharp Current Severity: Moderate Maximum Severity: Moderate Worsened by: improves with Movement Associated Symptoms Associated Symptoms: Negative for Numbness and Tingling Narrative Narrative: 40-year-old male no severe past medical history. Patient states that yesterday he woke up in the morning and had upper back pain. He said he is in pain like this before with a pinched nerve but not this severe. He denies any chest pain or shortness of breath. He denies any abdominal pain. He said at times it does radiate to his right tricep region. He denies any weakness or numbness in his right arm. No radiation to his left arm or legs. No radiation to his chest or abdomen. He was seen in urgent care placed on [facility] and written for a prednisone taper. He said he took those today and it is not helping. Prior similar symptoms: Yes Recent Illness/Hospitalization: No PFSH [facility] Medical History Encounter for sterilization Home Medications acetaminophen 300 mg-codeine 30 mg tablet 1 tab PO Q6H PRN #10 tab 11/11/18 [Rx Last Taken Unknown] diazepam [Valium] 10 mg PO TID PRN 5 Days #14 tab 04/14/21 [Rx Last Taken Unknown] Allergy/AdvReac Type Severity Reaction Status Date / Time Penicillins Allergy Mild rash Verified 04/14/21 18:06 Family History Mother Diabetes Father Diabetes Heart disease Surgical History History of vasectomy (~10/2018) S/P cholecystectomy Social History Smoking Status: Never smoker alcohol intake: current alcohol intake frequency: 0-2 drinks per day substance use type: does not use ROS ROS ED ROS Narrative Denies recent illness. Review of Systems ROS Unobtainable: Denies due to encephalopathy Constitutional Constitutional ED: Denies fever(s) Eyes Eyes: Denies change in vision ENT ENT ED: Denies ear pain Cardiovascular Cardiovascular: Denies chest pain, palpitations or racing heartbeat Respiratory/Chest Respiratory/Chest: Denies dyspnea or sputum Gastrointestinal Gastrointestinal: Denies abdominal pain, diarrhea, nausea or vomiting Genitourinary Genitourinary ED: Denies dysuria Musculoskeletal Musculoskeletal: Reports back pain Integumentary Denies rash Neurologic Neurologic: Denies headache(s) Psychiatric Psychiatric: Denies depression Endocrine Endocrinology: Denies polyuria Hematologic/Lymphatic Hematologic/Lymphatic: Denies easy bruising Allergic/Immunologic Allergic/Immunologic ED: Denies urticaria EXAM Physical Exam Narrative Exam Narrative: 40-year-old male standing up right in the room complaining of upper back pain. Vital signs stable afebrile. HEENT exam unremarkable. Neck nontender. Full range of motion. Lungs clear to auscultation bilaterally. Heart regular rate and rhythm no murmur. Abdomen soft nontender normal bowel sounds no peritoneal signs. Moving all 4 extremities. Neurovascular intact. 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 Normal sensation. Normal range of motion. Equal symmetrical radial pulses. Lower extremities neurovascular intact. Back he has no cervical thoracic or lumbar spine tenderness. His mid to upper thoracic paraspinal musculature he has an area of tenderness. Neurologically his exam is normal. Normal motor strength and sensation of all digits. No cauda equina. Const Vital Signs: 04/14/21 18:07 Temperature 97.4 F L Temperature Source Temporal Pulse Rate 84 Respiratory Rate 18 Blood Pressure 166/84 H Blood Pressure Mean 111 Pulse Ox 97 Oxygen Delivery Method Room Air Positive well nourished and well developed General Appearance ED: well developed HEENT Reports moist mucous membranes Negative for tenderness Eyes PERRL and EOMs intact bilaterally Neck no lymphadenopathy, supple and no JVD General: Negative for tenderness Resp normal respiratory effort and clear to auscultation bilaterally Cardio regular rate, regular rhythm, S1 normal heart sound, S2 normal heart sound and no murmurs Rate: Negative for bradycardia or tachycardic GI normal to inspection, nondistended, normoactive bowel sounds, soft to palpation, non-tender, non-distended and no masses Inspection: Negative for abdominal distention Palpation: Negative for tender, guarding, pulsatile mass or rebound tenderness present Back/Spine normal to inspection Back/Spine Narrative: Tenderness to his mid to upper para spinal musculature of the thoracic spine. Spine itself is nontender. No signs of trauma. No redness or warmth. No bruising. Extremity normal to inspection General Extremety ED: Negative for edema or tenderness General Extremity: Negative for edema Neuro oriented x3 and no sensory deficits noted Sensorium / Orientation: alert; Negative for confused, lethargic or stuporous Motor Exam: strength 5/5 throughout Psych mental status grossly normal Skin no rashes or lesions noted MDM MDM MDM Narrative Medical decision making narrative: Patient with a history and exam consistent with muscle spasm and a pinched nerve of his mid upper thoracic spine. He is neurovascularly intact. He has no other symptoms such as chest pain or shor tness of breath. No abdominal pain. Exam otherwise is benign. This is reproducible. He will be given an IM injection of Dilaudid and Toradol. P.o. Valium. He will use Valium at home as a muscle relaxant. Stop the Flexeril. And continue on his anti-inflammatory. Follow-up if not improving. Discharge Plan Triage Chief Complaint: Back ED Provider: [facility] Dx/Rx/DC Orders Clinical Impression: Muscle spasm, Pinched nerve Instructions: ED Muscle Spasm Prescriptions: New diazepam [Valium] 10 mg tablet 10 mg PO TID PRN (Reason: muscle spasm) 5 Days Qty: 14 RF: 0 No Action acetaminophen-codeine 300-30 mg tablet 1 tab PO Q6H PRN (Reason: pain) Qty: 10 RF: 0 Primary Care Provider: Estuardo Jack Referrals: Estuardo Jack DO [Primary Care Provider] - Activity Restrictions/Additional Instructions: Follow-up with your doctor if not improving in 3 to 5 days. It may not be on a percent better yet. Prednisone or ibuprofen for pain and inflammation on both. Valium as a muscle relaxant. Do not drive or drink with that. Hot shower, warm baths and massage to the area. Return if weakness in your upper extremity extremities or you develop other symptoms. Disposition Disposition: Home, self care
[2021-04-14] MEDS: Ketorolac 60 MG/2 ML Vial IM (19:09)
[2021-04-14] MEDS: HYDROmorphone 1 MG/ML Syringe IM (19:10)
[2021-04-14] MEDS: diazePAM 5 MG Tablet 10 MG PO (19:10)
== END 2021-04-14 19:39 | disposition home or self-care (01) ==
LOC: ED 18:57
PROVIDERS: Emergency Provider Emergency Medicine; PCP Student in an Organized Health Care Education/Training Program
DX: M62.830 Muscle spasm of back (principal); G58.9 Mononeuropathy, unspecified
CPT/HCPCS: 96372; 99283